=== PATIENT | female | born 1995 | race Caucasian/White ===

== ENCOUNTER 2024-05-02 07:10 | Inpatient (IN) | payer OTHER, SELFPAY ==
[2024-05-02] VITALS (74 sets, daily range): BP systolic 107–151; BP diastolic 51–85; PULSE 73–118; RESP 16–18; TEMP 36.4–37.4; O2SAT 88–100; BMI 41.4
--- NOTE | 2024-05-02 07:31 | HP.PCM.OB_ITS ---
HPI - General General Date of Admission: 05/02/24 HPI Narrative MICHA TAPIA, is a 28 F who presents at 38w1d for induction of labor due to Chronic HTN Maternal Data Information BERNADETTE Calculator Estimated Delivery Date Method Current WG Current Estimate 05/15/24 Manual 38w 1d PFSH PFS Medical History (Updated 05/02/24 @ 08:56 by Nany Orona CNM) HPV (human papilloma virus) infection Thyroid disorder Anxiety (~05/02/24) Chronic hypertension Surgical History History of surgery Social History Smoking Status: Former smoker History Elective abortions Hx Para 1 Spontaneous abortions Hx # Term Pregnancies Ectopic pregnancies Hx # Pregnancies Multiple births # of living children NST FHR Rate Baby A Baseline: 150 Variability:: Moderate Accelerations:: 15 x 15 Decelerations:: Variable FHR Category:: Category II Uterine Activity:: Irregular, mild ROS Constitutional Constitutional: Reports systems reviewed and no addt'l complaints, except as documented; Denies headache(s) Eyes Eyes: Denies acute decrease in peripheral vision, blurry vision or change in vision ENT HEENT: Reports systems reviewed and no addt'l complaints, except as documented Cardiovascular Cardiovascular: Denies chest pain or dizziness Respiratory/Chest Respiratory/Chest: Denies cough, dyspnea, dyspnea on exertion, shortness of breath at rest or shortness of breath with exertion Gastrointestinal Gastrointestinal: Denies abdominal pain, diarrhea, nausea or vomiting Genitourinary Genitourinary: Denies abdominal discomfort Musculoskeletal Musculoskeletal: Denies limited range of motion Integumentary Integumentary: Reports systems reviewed and no addt'l complaints, except as documented Neurologic Neurologic: Reports systems reviewed and no addt'l complaints, except as documented Psychiatric Psychiatric: Reports systems reviewed and no addt'l complaints, except as documented Endocrine Endocrinology: Reports systems reviewed and no addt'l complaints, except as documented Hematologic/Lymphatic Hematologic/Lymphatic: Reports systems reviewed and no addt'l complaints, except as documented Allergic/Immunologic Allergic/Immunologic: Reports systems reviewed and no addt'l complaints, except as documented Vital Signs Vital Signs Vital Signs: Weight Weight: 241 lb 6.4 oz Body Mass Index (BMI) 41.4 Physical Exam Const alert and oriented x3 General Appearance: cooperative Orientation / Consciousness: awake, oriented to person, oriented to place and oriented to time Exam Limitations: no limitations HEENT normocephalic Head and Scalp: normal to inspection, normocephalic and atraumatic Face and Sinus: normal facial exam Eyes General Eye: normal appearance of both eyes Neck full ROM Chest Chest: symmetrical chest wall rise Resp normal respiratory effort and normal air movement Auscultation: clear to auscultation bilaterally Cardio regular rate, regular rhythm, S1 normal heart sound, S2 normal heart sound, no murmurs, no rub, no gallops and no clicks GI normal to inspection, nondistended, normoactive bowel sounds and non-tender appearance of the vagina normal Bladder / Kidney Exam: no CVA tenderness Manual OB Exam: estimated gestational size appropriate, presentation cephalic, dilated 1cm, effaced 50%, station -3 and other edwards inserted over stylus into cervical os. 30ml NS instilled Back/Spine normal ROM Extremity normal to inspection and full ROM Skin no rashes or lesions noted Neuro oriented x3, CN's II-XII intact bilaterally and moves all extremities Sensorium / Orientation: awake, alert and oriented to person Motor Exam: clonus absent Deep Tendon Reflexes: Rt Patellar (L4): 2+ and Lt Patellar (L4): 2+ Labs Labs Labs: Blood Type O POSITIVE Antibody Screen NEGATIVE Hct Pending Hgb Pending Syphilis Total Ab Pending HIV negative HBsAG negative HepC negative O positive GC/CT negative Rubella Immune 1hr GCT normal GBS negative Assessment & Plan (1) Obesity affecting : (2) Ale's disease: COMMENT: Taking Synthroid PLAN: Plan 1) Admit to labor and delivery 2) Routine labs 3) Edwards and pitocin for induction 4) vitals stable 5) Pain management upon request 6) [facility] physician and notified of patient status, above assessment and plan
[2024-05-02] MEDS: Lactated Ringers 1,000 ML 50 ML IV (07:35)
[2024-05-02 07:58] LABS: Absolute Lymphocyte Count 0.59 X10^3/uL (0.83-4.51); Absolute Neutrophil Count 4.8 X10^3/uL (2.0-7.7); Basophil# 0.01 X10^3/uL; Basophil% 0.2 % (0-1); Eosinophil# 0.17 X10^3/uL; Hematocrit 32.3 % (37-47); Hemoglobin 10.5 g/dL (12.0-15.0); Lymphocyte # 0.59 X10^3/ul (0.83-4.51); Lymphocyte % 10.4 % (19-41); Mean Corp Hgb Conc 32.5 g/dL (32-36); Mean Corpuscular Hgb 29.4 pg (27.0-32.0); Mean Corpuscular Volume 90.5 fL (81-99); Mean Platelet Vol. 11.9 fl (6.2-12.0); Monocyte# 0.03 X10^3/uL; Monocyte% 0.5 % (0-10); NRBC Flagged by Analyzer 0 % (0-5); Neutrophil # 4.77 X10^3/uL (2.7-7.7); Neutrophil % 84.5 % (47-70); POSITIVE DIFFERENTIAL YES; POSITIVE MORPHOLOGY YES; Platelet Count 170 K/mm3 (150-450); RBC Distribution Width CV 13.5 % (11.6-14.6); RBC Distribution Width SD 44.3 fl (35.1-43.9); Red Blood Count 3.57 M/mm3 (4.2-5.4); White Blood Count 5.7 K/mm3 (4.4-11.0)
[2024-05-02] MEDS: 0.9% Normal Saline Single 100 ML IV.SOLN. INTRA-UTER (08:10)
[2024-05-02] MEDS: Oxytocin 15 Units/NS 250ml 15 UNITS/250 ML IV.SOLN 2 UNITS IV (08:20)
[2024-05-02 09:14] LABS: Syphilis Antibodies Non-reactive
--- NOTE | 2024-05-02 10:53 | PCM.PN.OB ---
Subjective Subjective Resting in bed, comfortable Objective Data Objective Data Vital Signs: Vital Signs Temp Pulse Resp BP Pulse Ox 98.2 F 89 16 136/71 H 92 05/02/24 09:28 05/02/24 09:28 05/02/24 09:28 05/02/24 09:28 05/02/24 09:28 Weight: 241 lb 6.4 oz Body Mass Index (BMI) 41.4 Intake & Output: Intake and Output for Last 24 Hours 04/30/24 05/01/24 05/02/24 23:59 23:59 23:59 Intake Total 10.87 / 10.87 Balance 10.87 / 10.87 Lab / Micro Data 05/02/24 07:35 Labs: Laboratory Results - last 24 hr 05/02/24 07:35: WBC 5.7, RBC 3.57 L, Hgb 10.5 L, Hct 32.3 L, MCV 90.5, MCH 29.4, MCHC 32.5, RDW Std Deviation 44.3 H, RDW Coeff of Damien 13.5, Plt Count 170, MPV 11.9, Immature Gran % (Auto) 1.400 H, Neut % (Auto) 84.5 H, Lymph % (Auto) 10.4 L, [place] % (Auto) 0.5, Eos % (Auto) 3.0, Baso % (Auto) 0.2, Absolute Neuts (auto) 4.8, Absolute Lymphs (auto) 0.59 L, Nucleated RBC % 0, Syphilis Total Ab Non-reactive, Blood Type O POSITIVE, Antibody Screen NEGATIVE Physical Exam Narrative: [place] out, exam 4cm/60%/-2. AROM clear fluid NST FHR Rate Baby A Baseline: 145 Variability:: Moderate Accelerations:: 15 x 15 Decelerations:: Variable FHR Category:: Category II Uterine Activity:: Every 2-3 minutes, moderate Assessment & Plan (1) Chronic hypertension: COMMENT: Labetolol 100 mg BID (2) Encounter for induction of labor: (3) 38 weeks gestation of : PLAN: Plan 1) Continue with active management 2) Pitocin per protocol 3) EFM 4) AROM 5) Epirdural upon request
[2024-05-02] MEDS: Lactated Ringers 1,000 ML 999 ML IV (11:10)
[2024-05-02] MEDS: fentaNYL-bupivacaine (epidural) 100 ML BAG EPIDURAL ×2 (13:10→17:18)
[2024-05-02] MEDS: Lactated Ringers 1,000 ML 200 ML IV (16:13)
[2024-05-02] MEDS: Oxytocin 15 Units/NS 250ml 15 UNITS/250 ML IV.SOLN 334 UNITS IV (22:13)
--- NOTE | 2024-05-02 22:28 | OP.PCM_ITS ---
Assessment & Plan (1) Vaginal delivery: (2) Periurethral laceration, delivered, current hospitalization: (3) Lactating mother: (4) Anxiety: COMMENT: taking Zoloft (5) Ale's disease: COMMENT: Taking Synthroid (6) Chronic hypertension: COMMENT: Labetolol 100 mg BID Maternal Data Information BERNADETTE Calculator Estimated Delivery Date Method Current WG Current Estimate 05/15/24 Manual 38w 1d Vaginal Delivery Maternal Presentation Maternal Presentation: Medically Indicated Induction (Chronic HTN) Type of Induction: Pitocin and [place] Bulb Operative Information Date of Procedure: 05/02/24 Pre-Operative Diagnosis: Induction of labor for chronic hypertension Post-Operative Diagnosis: , periurethral laceration Surgery / Procedure Performed: Spontaneous Vaginal Delivery Type of Anesthesia: Epidural Estimated Blood Loss: 300ml Time of Delivery: 22:05 Findings Description of Procedure: Progressed to complete with urge to push. Epidural for pain management. Called to delivery, rapid progressionNSVD of viable male over periurethral laceration. APGARS 8,9 respectively. Infant head delivered with body immediately forthcoming. Placed on maternal abdomen, strong cry. Mouth and nares suctioned for secretions. Pitocin started for active 3rd stage management. Cord doubly clamped and cut by FOB after pulsations ceased, delayed cord clamping. Placenta delivered intact via franco gilman, 3 vessel cord intact. Perineum inspected and revealed 2nd degree perineal laceration. Repaired with 3.0 vicryl rapide and lidocaine. Fundus firm and hemostasis achieved. EBL *. Mom and baby stable, planning to *. Family bonding well. notified of delivery.
--- NOTE | 2024-05-02 22:28 | EX.PCM.OBRPT ---
Assessment & Plan (1) Vaginal delivery: (2) Periurethral laceration, delivered, current hospitalization: (3) Lactating mother: (4) Anxiety: COMMENT: taking Zoloft (5) Ale's disease: COMMENT: Taking Synthroid (6) Chronic hypertension: COMMENT: Labetolol 100 mg BID Maternal Data Information BERNADETTE Calculator Estimated Delivery Date Method Current WG Current Estimate 05/15/24 Manual 38w 1d Vaginal Delivery Maternal Presentation Maternal Presentation: Medically Indicated Induction (Chronic HTN) Type of Induction: Pitocin and [place] Bulb Operative Information Date of Procedure: 05/02/24 Pre-Operative Diagnosis: Induction of labor for chronic hypertension Post-Operative Diagnosis: , periurethral laceration Surgery / Procedure Performed: Spontaneous Vaginal Delivery Type of Anesthesia: Epidural Estimated Blood Loss: 300ml Time of Delivery: 22:05 Findings Description of Procedure: Progressed to complete with urge to push. Epidural for pain management. Called to delivery, rapid progression with pushing and delivery without pushing efforts, spontaneous delivery. Delivered by RN at bedside BRYCE Zimmerman. of viable male infant over periurethral laceration. APGARS 8,9 respectively. Infant head delivered with body immediately forthcoming. Placed on maternal abdomen, strong cry. Mouth and nares suctioned for secretions. Pitocin started for active 3rd stage management. Cord doubly clamped and cut by FOB after pulsations ceased, delayed cord clamping. Attempted gentle traction/counter pressure of umbilical and cord avulsion with immediate grasp. Manual removal without difficulty as placenta coming through cervical os, 3 vessel cord intact. Perineum inspected and revealed periurethral laceration. Repaired with 3.0 vicryl rapide and epidural. Fundus firm and hemostasis achieved. EBL 300ml. Mom and baby stable, planning to breastfeed. Family bonding well. notified of delivery. Presentation: Vertex Amniotic Membrane Rupture Type: Artificial Amniotic Fluid Description: Clear Placental Delivery Description: Manual Removal Placenta Disposition: [facility] Cord Vessel Description: 3 Vessels Cord Entanglement: None A Gender: Male (1 minute): 8 (5 minute): 9 Delayed Cord Clamping: Yes Post Vaginal Delivery Medications Given After Delivery: IV Pitocin Episiotomy Description: None Laceration: Periurethral Extnsion/lac Complication Complications: None
[2024-05-02] MEDS: Oxytocin 15 Units/NS 250ml 15 UNITS/250 ML IV.SOLN 83 UNITS IV (23:08)
[2024-05-03] VITALS (17 sets, daily range): BP systolic 98–142; BP diastolic 57–86; PULSE 65–119; RESP 16–17; TEMP 36.2–36.9; O2SAT 93–100
--- NOTE | 2024-05-03 05:48 | NURSING ---
RN call to provider to get order for synthroid 50 mcg PO daily, provider order not processed. order for labetalol 100 mg BID and zoloft 50 mg PO daily. Provider asked if pt was given labetalol after delivery by service delivery analyst. pt was not given dose last night. 0400 BP was 140/70, so provider would like first dose to be given 0800 and then scheduled 1000 and 2200.
[2024-05-03] MEDS: Levothyroxine 50 MCG Tablet PO (05:56)
[2024-05-03 07:23] LABS: Absolute Lymphocyte Count 1.36 X10^3/uL (0.83-4.51); Absolute Neutrophil Count 9.9 X10^3/uL (2.0-7.7); Basophil# 0.03 X10^3/uL; Basophil% 0.2 % (0-1); Eosinophil# 0.02 X10^3/uL; Eosinophils% 0.2 % (0-5); Hematocrit 32.4 % (37-47); Hemoglobin 10.6 g/dL (12.0-15.0); Lymphocyte # 1.36 X10^3/ul (0.83-4.51); Lymphocyte % 11.3 % (19-41); Mean Corp Hgb Conc 32.7 g/dL (32-36); Mean Corpuscular Hgb 29.3 pg (27.0-32.0); Mean Corpuscular Volume 89.5 fL (81-99); Mean Platelet Vol. 12.1 fl (6.2-12.0); Monocyte# 0.68 X10^3/uL; Monocyte% 5.6 % (0-10); NRBC Flagged by Analyzer 0 % (0-5); Neutrophil # 9.94 X10^3/uL (2.7-7.7); Neutrophil % 82.3 % (47-70); Platelet Count 177 K/mm3 (150-450); RBC Distribution Width CV 13.7 % (11.6-14.6); RBC Distribution Width SD 44.9 fl (35.1-43.9); Red Blood Count 3.62 M/mm3 (4.2-5.4); White Blood Count 12.1 K/mm3 (4.4-11.0)
[2024-05-03] MEDS: Labetalol 100 MG Tablet PO ×2 (07:59→22:52)
--- NOTE | 2024-05-03 08:19 | PN_ITS ---
Subjective Subjective patient seen at bedside, doing well. Patient reports good pain control. lochia mild. denies VIVEROS, visual changes. Objective Data Objective Data Vital Signs: Vital Signs Temp Pulse Resp BP Pulse Ox O2 Del Method 98.3 F 85 16 128/81 H 98 Room Air 05/03/24 07:28 05/03/24 07:28 05/03/24 07:28 05/03/24 07:28 05/03/24 07:28 05/03/24 07:28 Oxygen Delivery Method Room Air Weight: 109.497 kg Body Mass Index (BMI) 41.4 Intake & Output: Intake and Output for Last 24 Hours 05/01/24 05/02/24 05/03/24 23:59 23:59 23:59 Intake Total 3403.33 / 3403.33 250 / 250 Output Total 750 / 750 300 / 300 Balance 2653.33 / 2653.33 -50 / -50 Lab / Micro Data 05/03/24 06:45 Labs: Laboratory Results - last 24 hr 05/02/24 07:35: WBC 5.7, RBC 3.57 L, Hgb 10.5 L, Hct 32.3 L, MCV 90.5, MCH 29.4, MCHC 32.5, RDW Std Deviation 44.3 H, RDW Coeff of Damien 13.5, Plt Count 170, MPV 11.9, Immature Gran % (Auto) 1.400 H, Neut % (Auto) 84.5 H, Lymph % (Auto) 10.4 L, [place] % (Auto) 0.5, Eos % (Auto) 3.0, Baso % (Auto) 0.2, Absolute Neuts (auto) 4.8, Absolute Lymphs (auto) 0.59 L, Nucleated RBC % 0, Syphilis Total Ab Non- reactive, Blood Type O POSITIVE, Antibody Screen NEGATIVE 05/03/24 06:45: WBC 12.1 H, RBC 3.62 L, Hgb 10.6 L, Hct 32.4 L, MCV 89.5, MCH 29.3, MCHC 32.7, RDW Std Deviation 44.9 H, RDW Coeff of Damien 13.7, Plt Count 177, MPV 12.1 H, Immature Gran % (Auto) 0.400, Neut % (Auto) 82.3 H, Lymph % (Auto) 11.3 L, [place] % (Auto) 5.6, Eos % (Auto) 0.2, Baso % (Auto) 0.2, Absolute Neuts (auto) 9.9 H, Absolute Lymphs (auto) 1.36, Nucleated RBC % 0 Physical Exam Const alert and oriented x3 General Appearance: cooperative HEENT normocephalic Neck General: normal visual inspection GI soft to palpation and non-distended GI Narrative: Fundus firm Extremity normal to inspection and no calf tenderness Skin no rashes or lesions noted Neuro oriented x3 and CN's II-XII intact bilaterally Psych mental status grossly normal Assessment & Plan Assessment/Plan (1) Vaginal delivery: (2) Obesity affecting : QUALIFIERS: Trimester: third trimester Obesity type affecting : other obesity Qualified Code(s): O99.213 - Obesity complicating , third trimester; E66.8 - Other obesity (3) Chronic hypertension: PLAN: Plan PPD#1 , Doing well Routine care pain mgmt ambulation continue labetalol 100mg bid monitor vs - BPs stable
[2024-05-03] MEDS: Sertraline 50 MG Tablet PO (10:29)
[2024-05-03] MEDS: Ibuprofen 600 MG Tablet PO (12:53)
[2024-05-03] MEDS: Acetaminophen 500 MG Tablet 1000 MG PO (22:52)
[2024-05-04 02:15] VITALS: BP 110/60; PULSE 63; RESP 16; TEMP 36.4; O2SAT 100
[2024-05-04] MEDS: Levothyroxine 50 MCG Tablet PO (06:08)
[2024-05-04 07:45] VITALS: BP 133/70; RESP 16; TEMP 36.6
--- NOTE | 2024-05-04 07:55 | DS.PCM_ITS ---
Providers Date of Admission: 05/02/24 Primary Care Physician: No Primary Care Phys Reason For Visit: VAG Diagnosis Discharge Diagnosis (1) Vaginal delivery: Status: Acute Code(s): O80 - Encounter for full-term uncomplicated delivery (2) Obesity affecting : Status: Acute Code(s): O99.210 - Obesity complicating , unspecified trimester Qualifiers: Obesity type affecting : other obesity Trimester: third trimester Qualified Code(s): O99.213 - Obesity complicating , third trimester; E66.8 - Other obesity (3) Chronic hypertension: Status: Chronic Code(s): I10 - Essential (primary) hypertension Medications at Discharge Home Medications labetalol 100 mg tablet 100 mg PO BID htn 05/02/24 levothyroxine 25 mcg tablet 50 mcg PO DAILY hypothyroidism 05/02/24 sertraline 50 mg tablet 50 mg PO DAILY anxiety 05/02/24 Hospital Course Operations None Procedures None Summary of Care Provided Minutes Spent on Discharge: 15 Hospital Course: Patient had vaginal delivery. Hospital course was uneventful. Physical Exam Narrative Patient seen at bedside. Denies pain. Ambulating and voiding without difficulty. Lochia decreased. Desires discharge home today. Const alert and oriented x3 General Appearance: Negative for in distress HEENT normocephalic Eyes General Eye: normal appearance of both eyes Neck General: normal visual inspection Chest Chest: symmetrical chest wall rise Resp normal respiratory effort and normal air movement Effort and Inspection: symmetric chest movement; Negative for tachypneic Auscultation: clear to auscultation bilaterally Cardio regular rate and regular rhythm Peripheral Pulses: pulses 2+ throughout GI normal to inspection, nondistended, normoactive bowel sounds Narrative: Ice to perineum OB / External & Speculum: vaginal bleeding and other Lochia decreasing Uterus Palpation: uterus fundus firm (Below U) Extremity normal to inspection, full ROM and normal capillary refill Skin no rashes or lesions noted Neuro oriented x3, CN's II-XII intact bilaterally and gait normal Psych mental status grossly normal, thought process normal and activity/motor behavior normal Weight / BMI Weight Weight: 241 lb 6.4 oz Body Mass Index (BMI) 41.4 ABG / Lab / Microbiology Data 05/03/24 06:45 D/C Instructions Discharge Diet: No restrictions Discharge Activity: Return to Normal Activity, No Restrictions, May Drive, May Shower and May Take a Tub Bath (Warm water only. No bath salts, soaps, bubbles) May resume sexual activity in: 6-8 weeks Weight Bearing Status: Weight bearing as tolerated Call your doctor if you observe: Fever of 101 or Higher, Inability to urinate, Using more than 1 pad per hour, Shortness of breath, Dizziness, Chest pain, Calf discomfort and Uncontrolled pain Please Follow Up With: [facility] Salima BRAVO When: 2 weeks in office or virtual Meaningful Use Info Meaningful Use Meaningful Use Diagnoses (Choose all that apply): None applicable Ischemic Stroke Statin Dosing Therapy Reference: STATIN DOSE THERAPY REFERENCE: * Patients > 75 years receive moderate or high dose statin therapy. * Patients 75 years or YOUNGER should receive HIGH intensity statin dose unless contraindicated. You will be required to document reason for non-treatment if statin daily dose does not meet guidelines. HIGH DOSE STATIN THERAPY DAILY Atorvastatin > than or = to 40 mg Rosuvastatin > than or = to 20 mg Amlodipine + Atorvastatin > than or = to 2.5/40 mg Ezetimibe + Simvastatin 10/80 mg Simvastatin 80mg Discharge Plan Admission Admit Date/Time: 05/02/24 07:10 Primary Reason for Your Visit: Labor and Delivery Attending Provider: Nany Orona Primary Care Provider: Care Physician,No Primary Discharge Orders/Prescriptions Prescriptions: Continued labetalol 100 mg tablet 100 mg PO BID levothyroxine 25 mcg tablet 50 mcg PO DAILY sertraline 50 mg tablet 50 mg PO DAILY Referrals / Follow Up: Care Physician,No Primary [Primary Care Provider] - Disposition Disposition (needs filled in before D/C Order can be placed): Home, Self Care
[2024-05-04] MEDS: Ibuprofen 600 MG Tablet PO (07:56)
[2024-05-04 09:14] VITALS: BP 133/70; PULSE 70; RESP 16; TEMP 36.6
--- NOTE | 2024-05-04 09:34 | CASEMGMT ---
Social Work Assessment Labor and Delivery Unit Patient Address:[address] [place] [address] Phone number: [phone] Date of Referral: 05/03/24 Time of Referral:? 724 Referred By: Nany Orona Date of Intervention: 05/04/24 ?? Time of Intervention:? 899 Reason for Referral:? anxiety Sw completed chart review and acknowledges social work consult due to maternal mental health history. Sw presented to bedside and introduced self to mother of baby (MOB- Tha) and father of baby (FOB- Keith). Sw explained sw role and completed psychosocial assessment. History obtained from: medical records, MOB and FOB Household composition: Currently residing in the home is MOB, FOB, CAROL ANN's older son (Sg- 8 years old) and baby when ready for discharge. Parents deny any issues or concerns with housing, stating that it is safe and secure. Patient's parent/guardian status:? ?CAROL ANN states that she and NARDA have been together for four years after being introduced to each other by a mutual friend. No concerns reported of domestic violence or intimate partner violence. [place] baby is first baby for parents together. Medical History: ?CAROL ANN is 28 year old female who is 2, para 1- now 2 following labor and delivery of . CAROL ANN received routine care during with [facility]. CAROL ANN presented to hospital for an induction of labor and delivered baby via vaginal delivery at 38 weeks gestation on 05/02/24. Baby boy, named Boby Matson, was born weighing 8lb 1oz with apgars of 8 and 9 at one and five minutes of life, respectfully. CAROL ANN is pumping and supplementing with formula, states that she has a pump for home. Baby will be followed by Dr. Henriquez for pediatrics. Educational Status:? Both parents graduated from high school, no concerns with reading, learning or comprehension. Financial Status: Both parents are gainfully employed outside of the home. 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 CAROL ANN is able to take 6 weeks off of work for maternity leave. Supplies:?? Parents have obtained all necessary baby supplies, including: car seat, safe sleep space, clothes, diapers and wipes. Childcare/Caregiver(s):? MOB will be the primary caregiver to baby along with FOB. When both parents are working, baby will be cared for by grandparents. Transportation:?? Both parents have their drivers license and reliable means of transportation, no barriers at this time. Programs/Agencies Involved: ???MOB and FOB are not connected to any community resources that assist them financially. MOB is not connected to any mental health services or supports. Children Services/Legal Issues:??? No history of children services involvement, no issues or concerns warranting referral to be made at this time. Behavioral Health Issues: ??Mental Health History: FOB denies mental health history. MOB states that she has been diagnosed with anxiety and is prescribed zoloft. MOB states that she does not have a primary care doctor at this time, her zoloft is prescribed by her OBGYN. MOB states that she is working on establishing care with a primary care doctor. MOB states that at baseline she feels anxious and overwhelmed, her symptoms are manageable and do not impact her ability to function. ?Substance Use History:?Parents deny substance use prior to or during . ? Family History:?Parents deny family history of substance use or significant mental health diagnoses. Drug Screens: No drug screens observed in chart review. ?? Family/Social Stressors:?Parents deny any issues or concerns at this time. Support Systems: MOB states that both sets of grandparents are their biggest supports. Depression/Shaken Baby/Safe Sleeping:? Sw educated parents on signs and symptoms of baby blues and mood and anxiety disorders to be on the lookout for during this period. Sw explained that due to MOB's mental health history she is more at risk for experiencing mood disorders. Parents express understanding. FOB stated that if MOB were to struggle he would be able to recognize that and would know how to help and support her. Sw educated parents on shaken baby prevention and ABCs of safe sleep. Parents express understanding. ASSESSMENT:? MOB and baby admitted following labor and delivery. MOB with mental health history positive for anxiety. MOB is prescribed zoloft to help manage her symptoms and states that she can tell a difference with the medication. MOB and FOB observed to provide loving and appropriate hands on care to . Parents were talkative and receptive to sw involvement and support. Parents have all necessary baby supplies and have adequate natural supports in place. PLAN:? MOB and baby to be discharged when medically ready. Resources and literature provided for parents to review, including: shaken baby prevention, ABCs of safe sleep, list of [facility] care resources that are accessible to them including mental health services and supports, mood and anxiety disorders and Help Me Grow. ?No other services requested or indicated. Graciela Carpenter, CONTACT LENS TECHNICIAN, HANDICRAFT OR HOBBY SHOP MANAGER
== END 2024-05-04 10:00 | disposition home or self-care (01) | DRG 807 ==
PROVIDERS: Admitting Provider Advanced Practice Midwife; Referring Provider Advanced Practice Midwife; Visit Provider Advanced Practice Midwife
DX: O10.02 Pre-existing essential hypertension complicating childbirth (principal); Z37.0 Single live birth; E66.8 Other obesity; E06.3 Autoimmune thyroiditis; F41.9 Anxiety disorder, unspecified; O99.214 Obesity complicating childbirth; O99.344 Other mental disorders complicating childbirth; O71.82 Other specified trauma to perineum and vulva; Z3A.38 38 weeks gestation of pregnancy; O99.284 Endocrine, nutritional and metabolic diseases complicating childbirth; Z79.890 Hormone replacement therapy; Z79.899 Other long term (current) drug therapy; Z87.891 Personal history of nicotine dependence
CPT/HCPCS: 59025; 59050; 85025; 86780; 86850; 86900; 86901; 99221; J7120; G0378